=== PATIENT | male | born 1935 | race Caucasian/White ===

== ENCOUNTER 2016-11-28 09:41 | Day surgery (SDC) | payer MEDICARE ==
[~2016-11-28] VITALS: Ht 182.9 cm; Wt 94.0 kg
[~2016-11-28 09:41] MED LIST: ACETAMINOPHEN 500 MG TAB (TYLENOL) PO PRN; CHONDROITIN/HYALURONATE (DISCOVISC) 1 ML SYR IO ONE; PHENYLEPHRINE/KETOROLAC 4 ML VIAL IO ONE; SODIUM CHLORIDE FLUSH 3 ML SYR IV PRN; TETRACAINE 0.5% OPHTHALMIC SOLUTION 4 ML BTL ONE; diphenhydrAMINE 50 MG/ML INJ (BENADRYL) IV PRN
[2016-11-28 10:01] VITALS: BP 144/75
[2016-11-28] MEDS: LIDOCAINE 3.5% OPHTH GEL (AKTEN) 1 ML BTL OS SCH ×3 (10:30→10:51)
[2016-11-28] MEDS: CATARACT PRE-OP EYE DROPS 0.5ML SYRINGE OS SCH ×2 (10:40→10:51)
[2016-11-28] MEDS: HOME MEDICATION OS SCH ×2 (10:40→10:51)
[2016-11-28] MEDS ORDERED: MIDAZOLAM 2 MG/2 ML (VERSED) VIAL ONE (10:55)
[2016-11-28] MEDS ORDERED: CHONDROITIN/HYALURONATE (VISCOAT) 0.5 ML SYR IO ONE (11:24)
[2016-11-28] MEDS ORDERED: ACETYLCHOLINE CHLORIDE 20 MG/2 ML KIT IO ONE (11:38)
[2016-11-28 11:58] VITALS: BP 145/78
== END 2016-11-28 12:30 | disposition home or self-care (01) ==
LOC: ASC 09:41
PROVIDERS: ATTEND Ophthalmology
DX: H25.12 Age-related nuclear cataract, left eye (principal); I48.91 Unspecified atrial fibrillation; I25.10 Atherosclerotic heart disease of native coronary artery without angina pectoris; I11.0 Hypertensive heart disease with heart failure; I50.9 Heart failure, unspecified; Z95.0 Presence of cardiac pacemaker; Z79.01 Long term (current) use of anticoagulants; Z86.73 Personal history of transient ischemic attack (TIA), and cerebral infarction without residual deficits
CPT/HCPCS: 36415; 66982; 84132; 85610; A9270; C9447; J2250; V2632